=== PATIENT | female | born 1955 | race Caucasian/White ===

== ENCOUNTER → 2017-04-02 | Outpatient (CLI) | payer OTHER ==
[~2017-04-02] MED LIST: ADULT LOW DOSE81 MG; ATIVAN0.5 MG PO; HYZAAR 100-251 EACH; IBUPROFEN 600600 M1 PO; LEXAPRO20 MG PO; NEXIUM40 MG; NORCO 5-325 TA1 EACH; NORCO 5-325 TA1 EACH PO; NORFLEX100 MG PO; PEXEVA20 MG; ZPAK PO
--- NOTE | 2017-04-08 10:33 | SLEEP ---
[address] [address] SLEEP STUDY REPORT Name: EMANUELJAMIR Adrian Room: [facility]#: [id number] Admission: 04/02/17 Attend Phys: Serjio Jaimes DO Discharge: Date of : 57 Report #: [id number] THIS REPORT FOR: //name// CC: Serjio CERVANTES This study has been reviewed in its entirety by a board certified sleep specialist DATE OF SERVICE: 04/03/2017 TYPE OF STUDY: Home sleep apnea test. REFERRING PHYSICIAN: Dr. Serjio Jaimes. INDICATION FOR STUDY: Hypertension, fatigue and snoring loudly. This was a home sleep apnea test with total recording time 451.4 minutes. During the study, the patient slept in supine position the whole night. During the study, she had 5 obstructive apneas and 61 hypopneas, with overall apnea-hypopnea index of 9 per hour. OXIMETRY DATA: The average O2 saturation was 92%. The lowest O2 saturation recorded was 80%. The average heart rate was 73.7 beats per minutes and snoring was recorded during the study. IMPRESSION: The above home sleep apnea test confirms the presence of obstructive sleep apnea with apnea-hypopnea index of 9 per hour and oxygen desaturation to a concha of 80%. Please note the above apnea-hypopnea index is likey an underestimate given the nature of home sleep apnea test. RECOMMENDATIONS: Treatment for mild obstructive sleep apnea, especially in the setting of hypersomnia and associated comorbidities would include PAP therapy, if there is no contraindication auto-CPAP therapy starting in the range of 5-20 cm of water with a close clinical followup and data download. However, if the patient has contraindication for auto-CPAP therapy, you can consider sending the patient to a sleep lab for CPAP titration study to determine the appropriate CPAP pressure to control the patient's obstructive sleep apnea. <ELECTRONICALLY SIGNED> By: Amira Mckeon MD 04/08/17 [id number] Mckeon MD /nt
== END ==
LOC: M.SLEEPLAB 09:00
DX: G47.33 Obstructive sleep apnea (adult) (pediatric) (principal); I10 Essential (primary) hypertension; R53.83 Other fatigue; R06.83 Snoring

== ENCOUNTER → 2019-02-19 | Outpatient (CLI) | payer OTHER | LOC: M.LAB 02:59 | DX: E87.6 Hypokalemia (principal) ==